=== PATIENT | female | born 1975 | race Caucasian/White ===

== ENCOUNTER 2019-06-15 08:30 | Emergency (ER) | payer OTHER ==
[~2019-06-15] VITALS: Ht 167.6 cm; Wt 79.4 kg
[2019-06-15 08:34] VITALS: BP 125/57
--- NOTE | 2019-06-15 08:37 | NUR ---
PATIENT AMBULATED TO BED 9.
--- NOTE | 2019-06-15 08:38 | NUR ---
44/F BIBA c/o sore throat x 4 days accompanied by cough. PATIENT STATES PAIN OF 6/10 AT THIS TIME.PATIENT POSITIONED FOR COMFORT; HOB ELEVATED; BEDRAILS UP X1; BED DOWN. ER MD MADE AWARE OF PT STATUS.
--- NOTE | 2019-06-15 08:39 | NUR ---
Patient being evaluated by DR SEGUNDO at bedside.
--- NOTE | 2019-06-15 08:40 | NUR ---
STREP THROAT SPECIMEN SENT TO LAB.
--- NOTE | 2019-06-15 08:40 | NUR ---
Cipriano chua in [place] - 06/15/19 at 0848 by [email or web address] STREAP THROAT SPECIMEN SENT TO LAB.
--- NOTE | 2019-06-15 09:52 | NUR ---
Patient discharged with v/s stable. Written and verbal after care instructions given and explained. Patient verbalized understanding. Ambulatory with steady gait. All questions addressed prior to discharge. Advised to follow up with PMD.
== END 2019-06-15 09:52 | disposition home or self-care (01) ==
LOC: MED 08:30
DX: J02.9 Acute pharyngitis, unspecified (principal)
CPT/HCPCS: 87081; 99283

== ENCOUNTER 2020-10-06 17:06 | Emergency (ER) | payer OTHER ==
[~2020-10-06] VITALS: Ht 167.6 cm; Wt 81.6 kg
[2020-10-06 17:14] VITALS: BP 139/71
--- NOTE | 2020-10-06 17:48 | NUR ---
AMBULATED TO BED 12
--- NOTE | 2020-10-06 17:50 | NUR ---
45 F BIB SELF C/C OF RIGHT SECOND FINGER LACERATION WHEN SHE WAS WASHING DISHES AN HOUR AGO. SHE REPORTS 3/10 BURNING PAIN THAT DOES NOT RADIATE. CMS+, BILATERAL RADIAL PULSES BOUNDING, CAP REFILL BRISK <2SECS. PT DENIES SOB, PALPITATION. NKA PMH: DENIES SURG HX: DENIES RX: DENIES
[2020-10-06] MEDS ORDERED: LIDOCAINE MPF 1% 10 MG/ML VIAL INJ ONE (18:05)
--- NOTE | 2020-10-06 18:33 | NUR ---
ERMD AT BEDSIDE PERFORMING LAC REPAIR
[2020-10-06 18:50] VITALS: BP 139/71
== END 2020-10-06 18:50 | disposition home or self-care (01) ==
LOC: MED 17:06
DX: S61.210A Laceration without foreign body of right index finger without damage to nail, initial encounter (principal); W25.XXXA Contact with sharp glass, initial encounter; Y93.89 Activity, other specified; Y92.89 Other specified places as the place of occurrence of the external cause; Y99.8 Other external cause status
CPT/HCPCS: 12001; 99282; J2001